=== PATIENT | male | born 1935 ===

== ENCOUNTER 2020-07-10 17:07 | Outpatient (NON) | payer OTHER, SELFPAY ==
[2020-07-10 18:00] LABS: Alanine Aminotransferase 67 U/L (16-63); Aspartate Amino Transferase 34 U/L (15-37); Estimated Glomerular Filt Rate 38
[2020-07-11 14:48] LABS: Hematocrit 28.3 % (37.0-46.0); Hemoglobin 8.7 g/dL (12.4-15.3)
== END 2020-07-10 17:08 ==
LOC: CHSLAB 17:18
DX: U07.1 COVID-19 (principal); N18.9 Chronic kidney disease, unspecified
CPT/HCPCS: 36415; 82565; 84450; 84460; 85014; 85018